=== PATIENT | male | born 1995 | race Caucasian/White ===

== ENCOUNTER 2022-06-07 12:55 | Emergency (ER) | payer OTHER ==
[~2022-06-07] VITALS: Ht 348 cm; Wt 70.3 kg
[2022-06-07] MEDS ORDERED: LOSARTAN POTASS50 MG PO (15:43)
[2022-06-07] MEDS ORDERED: UNISOM50 MG PO (15:43)
[2022-06-07] MEDS ORDERED: TRAZODONE HCL100 MG PO (18:17)
--- OUTSIDE RECORDS SUMMARY | 2022-06-07 18:42 | XMS ---
PreManage Notification: DELVIN PONCE Security [employer] Events No recent Security Events currently on file CRITERIA MET - [facility] - 2 Visits in 30 Days CARE PROVIDERS There are no care providers on record at this time. Shirley has no Care Guidelines for this patient. Anna VISIT COUNT (12 MO.) 1 Rose Mary Saldivar [address] [facility] TOTAL 2 NOTE: Visits indicate total known visits. ED/C VISIT TRACKING (12 MO.) 06/07/2022 12:[address] [facility] [place] TYPE: Emergency COMPLAINT: - EXHAUSTION, SOB, NOT FEELING WELL 05/31/2022 10:01 Rose Mary [facility] TYPE: Emergency COMPLAINT: - UNABLE TO SLEEP,FEELS ILL DIAGNOSES: - Insomnia, unspecified INPATIENT VISIT TRACKING (12 MO.) No inpatient visits to display in this time frame [email or web address]
--- NOTE | 2022-06-08 07:19 | EKG ---
[facility] [address] [place], [place] [address] Signed Normal sinus rhythm Normal ECG No previous ECGs available Confirmed by CHELSEA LOPEZ MD ([id number] on 06/08/2022 7:19:17 AM Electronically Signed By: CHELSEA LOPEZ MD 06/08/22 0719 PATIENT NAME: DELVIN PONCE Electrocardiogram DATE OF : [birth year] PHYSICIAN: CHELSEA LOPEZ MD REPORT #: [id number] REPORT IS CONFIDENTIAL AND NOT TO BE RELEASED WITHOUT AUTHORIZATION
== END 2022-06-07 18:34 | disposition home or self-care (01) ==
LOC: ED 12:55
DX: R53.83 Other fatigue (principal); G47.00 Insomnia, unspecified; I10 Essential (primary) hypertension; Z79.899 Other long term (current) drug therapy
CPT/HCPCS: 36415; 80053; 81001; 84443; 85025; 93005; 93010; 99283-25